=== PATIENT | male | born 1975 | race Caucasian/White ===

== ENCOUNTER → 2017-08-03 | Outpatient (CLI) | payer OTHER ==
[2017-08-03 18:32] LABS: BLOOD UREA NITROGEN 10 mg/dl (7-18); CALCIUM 9.6 mg/dl (8.5-10.1); CARBON DIOXIDE 29 mmol/L (21-32); CHLORIDE 102 mmol/L (98-107); CREATININE 1.01 mg/dl (0.60-1.40); GLUCOSE,FASTING 92 mg/dl (70-99); POTASSIUM 4.2 mmol/L (3.5-5.1); SODIUM 135 mmol/L (136-145)
[2017-08-03 18:46] LABS: CHOLESTEROL 205 mg/dl (0-200); CHOLESTEROL/HDL RATIO 5.3; HDL CHOLESTEROL 39 mg/dl; LDL CHOLESTEROL CALCULATED 97 mg/dl; TRIGLYCERIDES 345 mg/dl (0-150); VERY LOW DENSITY LIPOPROT CALC 69 mg/dl
== END | disposition home or self-care (01) ==
LOC: C.LABPBG 12:32
PROVIDERS: ATTEND Family Medicine
DX: Z00.00 Encounter for general adult medical examination without abnormal findings (principal); R45.851 Suicidal ideations; R53.83 Other fatigue; Z13.21 Encounter for screening for nutritional disorder

== ENCOUNTER → 2017-08-19 | Outpatient (CLI) | payer OTHER ==
--- NOTE | 2017-08-20 06:17 | PAP/PSG TECHNICIAN REPORT ---
[facility] Chart Writer Polysomnogram Report Study name: None Report date: 08/20/2017 Study date: 08/19/2017 Referring Physician: Haydee Garcia DO Name: TERI SOLOMON Interpreting Physician: Scott Taylor M.D. Date of : 1975 Chart Writer: Kay Vogel, PSGT. Sex: Male Age: 42 StudyType: PSG Weight: 195 lbs Height: 42 years, Height 5' 11" Neck Circum:16 inches BMI: 27.19 Medications: Klonopin 05 mg, Vit.-D 5000 iu, Magnesium 200 mg, Maxalt 10 mg, Multivit. Patient History 42 yr. old male presents to the sleep lab, for a baseline sleep study. Patient states that he has had c-pap in the past, 3 years ago while living in [place]. He stated that he was able to tolerate the pressure .He now suffers from Bipolar , depression as well as anxiety. He also states that he wakes with a headache daily. He wakes often and never feels rested even after 10-12 hours of sleep.ESS=7, Neck= 16 inches. Parameters Monitored NPSG: E1-M2, E2-M1, Fp1-M2, Fp2-M1, F3-M2, F4-M2, F4-M1, C3-M2, C4-M2, C4-M1, O1-M2, O2-M2, O2-M1, T3-M2, T4-M1, P3-M2, P4-M1, CHIN1, CHIN2, HR, EKG, Legs, PFLOW, SNOR, FLOW, CFLOW, Tidal Volume, THOR, ABDO, SpO2, PLTH, CPRESS, ETCO2 Wave, ETCO2, pH Sleep Architecture Sleep Stages Time at Lights Off 11:01:58 PM STAGES Time (min.) TST (%) Time at Lights On 5:32:28 AM Wake 91.0 -- Total Recording Time (TRT) 395.50 min. N1 23.5 8 Total Sleep Period (TSP) 356.0 min. N2 170.0 57 Total Sleep Time (TST) 299.5min. N3 28.0 9 Awake Time 91.0 min. REM 78.0 26 Wake after Sleep Onset 56.5 min. Sleep Efficiency (SE) 77 % Sleep Onset Latency (HAYDEE) 34.5 min. Number of Stage 1 Shifts None Awakenings 2 Stage Changes 14 Number of REM periods 2 REM 78.0 26 REM Latency 99.5 min. NREM 221.5 74 Body Position Analysis Supine Right Left Side Prone Vertical Total Sleep Time (min.) 380.4 0.0 0.0 0.00 0.0 10.1 Total Sleep Time (%) 100% 0% 0% 0 0% N/A% Total Sleep Time REM (min.) 78.0 0.0 0.0 None 0.0 0.0 Total Sleep Time NREM (min.) 221.5 0.0 0.0 None 0.0 0.0 Intermittent Wake (min.) 80.9 0.0 0.0 None 0.0 10.1 Total Sleep Period (%) 100% None None None None None Arousals Myoclonus (PLM) * Events Count Index Events Count Index Spontaneous 30 6 Events Awake (PLMW) 0 0.0 Respiratory 1 0.2 Events Asleep w/ Arousal (PLMA) 2 0.4 PLM 2 0 Events Asleep w/o Arousal (PLMS) 52 10.4 Snoring 10 2 Total Asleep 54 10.8 Total 43 9 Total 54 8 Respiratory Analysis * CA OA MA CH H RERA Total Count 0 2 0 0 59 0 61 Index 0.0 0.4 0.0 0 11.8 0 12.2 Mean Duration 0.0 23.5 0.0 0.00 19.1 0.0 19.2 Longest Duration 0.0 26.2 0.0 0.00 0.0 0.0 46.4 Respiratory Event Summary Total Supine ~Supine Right Left Prone REM NREM Apneas Count 2 2 N/A N/A N/A N/A 0 2 Index 0.4 0 N/A N/A N/A N/A 0 1 Hypopneas (4% Desat) Count 59 59 N/A N/A N/A N/A 28 31 Index 11.8 11.8 N/A N/A N/A N/A 21.5 8.4 Apneas & All Hypopneas Count 61 61 N/A N/A N/A N/A 28 33 Index 12.2 12 N/A N/A N/A N/A 21.5 8.9 Respiratory Events (Ceramic Maker Demonstrator+All Hyp+RERA) Count 61 61 N/A N/A N/A N/A 28 33 Index 12.2 12 N/A N/A N/A N/A 21.5 8.9 Respiratory Related Arousal Count 1 61 N/A N/A N/A N/A 1 0 Index 0.2 0 N/A N/A N/A N/A 1 0 Snoring Analysis Supine Right Left Prone REM NREM Total Snore duration 44.4 min Snores count 1,783 N/A N/A N/A 156 1,627 1,783 Snore mean duration 1.5 Sec Snores index 357 N/A N/A N/A 120.0 440.7 357.2 TST with snoring (%) 14.8% Desaturation Event Summary: Minimum %SpO2 Event Count Mean/Min/Max Duration(sec.) Desaturation Index % Time In Bed > 90 53 28.8 / 13.5 / 56.8 25.0 33.6 86 - 90 43 25.8 / 8.5 / 56.3 10.6 64.5 81 - 85 1 8.5 / 8.5 / 8.5 8.0 2.0 76 - 80 0 N/A 0.0 0.0 71 - 75 0 N/A 0.0 0.0 66 - 70 0 N/A 0.0 0.0 61 - 65 0 N/A 0.0 0.0 56 - 60 0 N/A 0.0 0.0 51 - 55 0 N/A 0.0 0.0 < 50 0 N/A 0.0 0.0 Total REM NREM Awake <50% 0.0 min. 0.0 min. 0.0 min. 0.0 min. 51 - 60% 0.0 min. 0.0 min. 0.0 min. 0.0 min. 61 - 70% 0.0 min. 0.0 min. 0.0 min. 0.0 min. 71 - 80% 0.0 min. 0.0 min. 0.0 min. 0.0 min. 81 - 90% 252.0 min. 44.4 min. 166.9 min. 40.7 min. 91 - 100% 127.3 min. 33.0 min. 53.4 min. 41.0 min. Average 90 90 89 90 Minimum SpO2 77 82 81 77 Desaturation Event Index 9.7 22.3 9.2 0.0 # Desat. Events below 89% 54 24 30 N/A Time(%) with Saturation below 89% 23.9 3.0 20.3 0.6 Time(min.) with Saturation below 89% 90.7 11.6 77.0 2.2 Time (mins) REM (mins) NREM (mins) % of TST SpO2 Below 90% 62 29 N33 46.7 SpO2 Below 88% 23 0 0 16 Heart Rate Analysis Min (bpm) Max (bpm) Average (bpm) Awake 64 127 73 NREM 56 95 69 REM 61 98 70 Overall 56 98 69 Supplemental O2 Values Minimum O2 level: None Value Start Time End Time Chart Writer Comments PSG Study Mr. Solomon slept in the supine positions. No cardiac arrhythmia or PLM's noted. No bruxism noted. Snoring was noted and scored as a 3 on a scale of 1 through 5. (0=no snoring, 5=snoring loud enough to be heard through a closed door or down the oro way) Mr. Solomon awoke to use the restroom one time during the night. stated, I did sleep as well as I do when I am in my own bed. The final report will be interpreted and signed by a sleep physician. The completed physician report will then be placed in the patient medical record. Therapy (cm H2O) 0 TIB (min.) 390.5 TST (min.) 299.5 Sleep Onset (min.) 34.5 REM Onset From Sleep (min.) 99.5 Sleep Efficiency % 77 Wakefulness (%) 23 Wakefulness (min.) 91.0 NREM 1 (%) 8 NREM 1 (min.) 23.5 NREM 2 (%) 57 NREM 2 (min.) 170.0 NREM 3 (%) 9 NREM 3 (min.) 28.0 REM (%) 26 REM (min.) 78.0 # Arousals 43 Arousal Index 9 # Snore 1,783 Snore Index 357.2 AHI 12.2 AHI Supine 12 AHI Non-Supine N/A NREM AHI 8.9 REM AHI 21.5 RDI 12.2 # Obstructive Apnea 2 # Central Apnea 0 # Mixed Apnea 0 # Hypopneas 59 RERAs 0 Total Respiratory Events 63 Time Below SpO2 89% (min.) 88.6 Mean NREM SpO2 (%) 89 Mean REM SpO2 (%) 90 Mean Sleep SpO2 (%) 89 Min NREM SpO2 (%) 81 Min REM SpO2 (%) 82 Position Supine (min.) 380.4 Position Non-supine (min.) 0.0 LM Index Sleep 10.8 LM Index NREM 7.0 LM Index REM 21.5 Mean Heart Rate (bpm) 69 Min Heart Rate (bpm) 56
--- NOTE | 2017-08-21 09:48 | POLYSOMNOGRAPH REPORT ---
CLINICAL DATA: A 42-year-old male with BMI of 27.[address] Haydee Garcia. He has a history of sleep apnea in the past and was on CPAP 3 years ago while living in [place], but was unable to tolerate CPAP. He now has depression, anxiety and fatigue with daily headaches. He awakens not feeling rested after 10-12 hours of sleep. His Coy sleepiness score is 7/24. SLEEP ARCHITECTURE: Total sleep period was 356 minutes. Total sleep time was 299.5 minutes divided between 221.5 minutes of non-REM sleep and 78 minutes of REM sleep. Sleep onset latency was 34.5 minutes. REM latency was 99.5 minutes. Sleep efficiency was 77%. Wake after sleep onset was 56.5 minutes. Sleep consisted of stage N1 8%, stage N2 57%, stage N3 9%, and REM 26%. AROUSAL DATA: 43 arousals were recorded for an index of 9 per hour. 30 were spontaneous. PLM DATA: 54 limb movements during sleep were noted for an index of 10.8 per hour with arousal index of 0.4 per hour. RESPIRATORY DATA: Mild sleep apnea was documented. The AHI was 12.2. There were 2 obstructive apneic episodes. The longest duration of apnea was 26.2 seconds. There were 59 hypopneic episodes with a mean duration of 19 seconds. OXIMETRY DATA: Nocturnal hypoxemia was seen. Oxygen eddie was 81% during non-REM sleep. The mean saturation was 90%. Time below 88% was 22 minutes. EKG: Heart rates ranged from 56-98 beats per minute. No arrhythmias were noted. CONVEYOR SYSTEM OPERATOR'S COMMENTS: The patient slept supine. Snoring was moderate, rated 3 on a scale of 1-5. IMPRESSION: Mild sleep apnea/hypopnea with an AHI of 12.2 with nocturnal hypoxemia. RECOMMENDATIONS: The patient may benefit from a repeat sleep study with CPAP, use of an oral appliance, or sleep medicine consultation. Clinical correlation is needed. [place]GLE
== END | disposition home or self-care (01) ==
LOC: C.NEUR 21:00
PROVIDERS: ATTEND Physician Assistant
DX: G47.30 Sleep apnea, unspecified (principal); G47.36 Sleep related hypoventilation in conditions classified elsewhere

== ENCOUNTER → 2017-09-22 | Outpatient (CLI) | payer OTHER ==
[~2017-09-22] VITALS: Ht 180.3 cm; Wt 89.9 kg
[2017-09-22 14:14] VITALS: BP 122/85; PULSE 91; Ht 180.3 cm; Wt 89.9 kg
== END | disposition home or self-care (01) ==
LOC: C.NEUR 13:12
PROVIDERS: ATTEND Internal Medicine Pulmonary Disease
DX: G47.30 Sleep apnea, unspecified (principal); R53.83 Other fatigue; F32.9 Major depressive disorder, single episode, unspecified; F31.9 Bipolar disorder, unspecified

== ENCOUNTER → 2017-10-04 | Outpatient (CLI) | payer OTHER ==
--- NOTE | 2017-10-05 06:36 | PAP/PSG TECHNICIAN REPORT ---
[facility] Director Of Resource Development Polysomnogram Report Study name: None Report date: 10/05/2017 Study date: 10/04/2017 Referring Physician: DR. TAYLOR Name: TERI SOLOMON Interpreting Physician: Scott Taylor M.D. Date of : 1975 Director Of Resource Development: PETE Correa. Sex: Male Age: 42 StudyType: PSG PAP Weight: 198 lbs 16.5 inches Height: 42 years, Height 5' 11" Neck Circum: BMI: 27.61 Medications: ADVIL, KLONOPIN 0.5 MG, MAGNESIUM 200 MG, RIZATRIPTAN BENZOATE 10 MG Patient History PATIENT HAD A SLEEP STUDY SEVERAL YEARS AGO AND HAD A SLIT STUDY DONE. HE WAS NOT ABLE TO TOLERATE CPAP AND HAD A PANIC ATTACK. HE RECENTLY HAD A NPSG AND WAS POSITIVE FOR [place] WITH AN AHI OF 12.2/HR. HE IS HERE TODAY FOR A CPAP TITRATION. RM 5 Parameters Monitored NPSG: E1-M2, E2-M1, Fp1-M2, Fp2-M1, F3-M2, F4-M2, F4-M1, C3-M2, C4-M2, C4-M1, O1-M2, O2-M2, O2-M1, T3-M2, T4-M1, P3-M2, P4-M1, CHIN1, CHIN2, HR, EKG, Legs, PFLOW, SNOR, FLOW, CFLOW, Tidal Volume, THOR, ABDO, SpO2, PLTH, CPRESS, ETCO2 Wave, ETCO2, pH Sleep Architecture Sleep Stages Time at Lights Off 11:02:23 PM STAGES Time (min.) TST (%) Time at Lights On 6:10:23 AM Wake 238.5 -- Total Recording Time (TRT) 428.50 min. N1 14.5 8 Total Sleep Period (TSP) 392.5 min. N2 74.0 39 Total Sleep Time (TST) 189.5min. N3 62.5 33 Awake Time 238.5 min. REM 38.5 20 Wake after Sleep Onset 203.0 min. Sleep Efficiency (SE) 44 % Sleep Onset Latency (HAYDEE) 35.5 min. Number of Stage 1 Shifts None Awakenings 10 Stage Changes 38 Number of REM periods 3 REM 38.5 20 REM Latency 351.5 min. NREM 151.0 80 Body Position Analysis Supine Right Left Side Prone Vertical Total Sleep Time (min.) 348.2 0.0 73.0 73.01 0.0 0.0 Total Sleep Time (%) 61% 0% 39% 39 0% N/A% Total Sleep Time REM (min.) 31.0 0.0 7.5 None 0.0 0.0 Total Sleep Time NREM (min.) 85.5 0.0 65.5 None 0.0 0.0 Intermittent Wake (min.) 231.7 0.0 6.8 None 0.0 0.0 Total Sleep Period (%) 80% None None None None None Arousals Myoclonus (PLM) * Events Count Index Events Count Index Spontaneous 13 4 Events Awake (PLMW) 139 35.0 Respiratory 1 0.6 Events Asleep w/ Arousal (PLMA) 1 0.3 PLM 0 0 Events Asleep w/o Arousal (PLMS) 25 7.9 Snoring 1 0 Total Asleep 26 8.2 Total 15 5 Total 165 23 Respiratory Analysis * CA OA MA CH H RERA Total Count 0 0 0 0 9 1 9 Index 0.0 0.0 0.0 0 2.8 0 3.2 Mean Duration 0.0 0.0 0.0 0.00 16.1 15.7 16.0 Longest Duration 0.0 0.0 0.0 0.00 0.0 15.7 18.7 Respiratory Event Summary Total Supine ~Supine Right Left Prone REM NREM Apneas Count 0 0 0 N/A 0 N/A 0 0 Index 0.0 0 0 N/A 0.0 N/A 0 0 Hypopneas (4% Desat) Count 9 8 1 N/A 1 N/A 1 8 Index 2.8 4.1 1 N/A 0.8 N/A 1.6 3.2 Apneas & All Hypopneas Count 9 8 1 N/A 1 N/A 1 8 Index 2.8 4 1 N/A 1 N/A 1.6 3.2 Respiratory Events (Cnc Cutting Operator+All Hyp+RERA) Count 9 9 1 N/A 1 N/A 1 8 Index 3.2 5 1 N/A 0.8 N/A 1.6 3.6 Respiratory Related Arousal Count 1 9 0 N/A 0 N/A 0 2 Index 0.6 1 0 N/A 0 N/A 0 1 Snoring Analysis Supine Right Left Prone REM NREM Total Snore duration 0.5 min Snores count 26 N/A 1 N/A 1 26 27 Snore mean duration 1.1 Sec Snores index 13 N/A 1 N/A 1.6 10.3 8.5 TST with snoring (%) 0.3% Desaturation Event Summary: Minimum %SpO2 Event Count Mean/Min/Max Duration(sec.) Desaturation Index % Time In Bed > 90 67 21.4 / 7.0 / 51.5 10.9 89.4 86 - 90 2 14.3 / 12.5 / 16.0 2.7 10.6 81 - 85 0 N/A 0.0 0.0 76 - 80 0 N/A 0.0 0.0 71 - 75 0 N/A 0.0 0.0 66 - 70 0 N/A 0.0 0.0 61 - 65 0 N/A 0.0 0.0 56 - 60 0 N/A 0.0 0.0 51 - 55 0 N/A 0.0 0.0 < 50 0 N/A 0.0 0.0 Total REM NREM Awake <50% 0.0 min. 0.0 min. 0.0 min. 0.0 min. 51 - 60% 0.0 min. 0.0 min. 0.0 min. 0.0 min. 61 - 70% 0.0 min. 0.0 min. 0.0 min. 0.0 min. 71 - 80% 0.0 min. 0.0 min. 0.0 min. 0.0 min. 81 - 90% 43.8 min. 0.0 min. 27.2 min. 16.6 min. 91 - 100% 368.9 min. 38.5 min. 123.8 min. 206.6 min. Average 92 94 92 93 Minimum SpO2 86 92 87 86 Desaturation Event Index 9.4 1.6 2.8 14.8 # Desat. Events below 89% 11 N/A 5 6 Time(%) with Saturation below 89% 0.4 0.0 0.3 0.2 Time(min.) with Saturation below 89% 1.8 0.0 1.1 0.7 Time (mins) REM (mins) NREM (mins) % of TST SpO2 Below 90% 7 N/A N7 2.6 SpO2 Below 88% 2 0 0 0 Heart Rate Analysis Min (bpm) Max (bpm) Average (bpm) Awake 55 91 71 NREM 54 80 62 REM 55 93 63 Overall 54 93 62 Supplemental O2 Values Minimum O2 level: None Value Start Time End Time Director Of Resource Development Comments Mr. Solomon slept in the left and supine positions. No cardiac arrhythmia noted. Leg movements noted. No bruxism noted. CPAP was initiated at +4 CMH2O and up-titrated to an optimal level of +8 CMH2O, which nearly eliminated all respiratory events and snoring. A [employer] and [employer] Pilairo nasal pillow was used during titration Mr. Solomon awoke to use the restroom 1 time during the night. Mr. Solomon stated I did not sleep as well as I do when I am in my own bed. The final report will be interpreted and signed by a sleep physician. The completed physician report will then be placed in the patient medical record. Therapy Event: Therapy (cm H20) 4 5 6 7 8 8/4 Total Time at Pressure (min.) 50.1 93.4 11.3 187.0 36.3 50.0 TST at Pressure (min.) 13.0 18.4 11.3 113.1 33.8 0.0 # Periods 1 2 1 2 1 1 Sleep Onset (min.) 35.5 52.9 0.0 0.0 0.0 N/A REM Onset (min.) N/A N/A N/A 55.1 0.0 N/A Sleep Efficiency % 25 19 100 60 93 0 Wakefulness (%) 74.1 80.3 0.0 39.5 6.9 100.0 Wakefulness (min.) 37.1 75.0 0.0 73.9 2.5 50.0 NREM 1 (%) 8.0 7.5 0.0 1.9 0.0 0.0 NREM 1 (min.) 4.0 7.0 0.0 3.5 0.0 0.0 NREM 2 (%) 18.0 12.2 100.0 22.6 0.0 0.0 NREM 2 (min.) 9.0 11.4 11.3 42.3 0.0 0.0 NREM 3 (%) 0.0 0.0 0.0 33.4 0.0 0.0 NREM 3 (min.) 0.0 0.0 0.0 62.5 0.0 0.0 REM (%) 0.0 0.0 0.0 2.5 93.1 0.0 REM (min.) 0.0 0.0 0.0 4.7 33.8 0.0 # Arousals 5 3 0 5 2 N/A Arousal Index 23.1 9.8 0.0 2.7 3.6 N/A # Snore 23 0 2 1 1 N/A Snore Index 106.2 0.0 10.7 0.5 1.8 N/A AHI 18.5 6.5 10.7 0.5 0.0 N/A AHI Supine 18.5 18.4 10.7 0.0 0.0 N/A AHI Non-Supine N/A 0.0 N/A 1.0 0.0 N/A NREM AHI 18.5 6.5 10.7 0.0 N/A N/A REM AHI N/A N/A N/A 12.6 0.0 N/A RDI 23.1 6.5 10.7 0.5 0.0 N/A # Obstructive 0 0 0 0 0 N/A # Central Ap 0 0 0 0 0 N/A # Mixed 0 0 0 0 0 N/A # Hypopneas 4 2 2 1 0 N/A RERAS 1 0 0 0 0 N/A Total Respiratory Events 5 2 2 1 0 N/A Time Below SpO2 89.00% (min.) 0.2 0.2 0.5 0.2 0.0 0.0 Mean NREM SpO2 (%) 92 92 90 92 N/A N/A Mean REM SpO2 (%) N/A N/A N/A 94 94 N/A Mean Sleep SpO2 (%) 92 92 90 92 94 N/A Min NREM SpO2 (%) 88 87 88 88 N/A N/A Min REM SpO2 (%) N/A N/A N/A 92 92 N/A Position Supine (min.) 13.0 6.5 11.3 54.7 31.0 0.0 Position Non-supine (min.) 0.0 11.9 0.0 58.3 2.8 0.0 LM Index Sleep 9.2 3.3 5.3 2.7 30.2 N/A LM Index NREM 9.2 3.3 5.3 0.6 N/A N/A LM Index REM N/A N/A N/A 50.5 30.2 N/A Mean Heart Rate (bpm) 68 62 63 61 63 N/A Min Heart Rate (bpm) 65 57 59 54 55 N/A
--- NOTE | 2017-10-05 17:14 | POLYSOMNOGRAPH REPORT ---
CLINICAL DATA: A 42-year-old male with a BMI of 27.61, referred for a CPAP titration study. He had a sleep study which showed mild sleep apnea with an AHI of 12.2. He previously tried CPAP in another lab, but he panicked and could not tolerate it. SLEEP ARCHITECTURE: Total sleep period was 392.5 minutes. Total sleep time was 189.5 minutes divided between 151 minutes of non-REM sleep and 38.5 minutes of REM sleep. Sleep onset latency was delayed at 35.5 minutes. REM latency was delayed at 351.5 minutes. Sleep efficiency was reduced at 44%. Wake after sleep onset was 203 minutes. Sleep consisted of stage N1 8%, stage N2 39%, stage N3 33%, and REM 20%. AROUSAL DATA: Fifteen arousals recorded for an index of 5 per hour. PERIODIC LIMB MOVEMENT DATA: Twenty six limb movements during sleep were noted for an index of 8.2 per hour with arousal index of 0.3 per hour. RESPIRATORY DATA: The AHI was 2.8. There were 9 hypopneic episodes with mean duration of 16.1 seconds. OXIMETRY DATA: No significant hypoxemia was seen. Oxygen eddie was 87% during non-REM sleep. The mean saturation was 92%. Time below 88% was 2 minutes. ECHOCARDIOGRAM: Heart rates ranged from 54-93 beats per minute. No arrhythmias were noted. ADVENTURE GUIDE'S COMMENTS AND TREATMENT SUMMARY: The patient slept in the left and supine positions. A Multani and [employer] P[employer] nasal pillow was used. The patient had difficult time using CPAP because of anxiety. He was awake for much of the night. However, he did eventually sleep at the end of the night and was able to be controlled with CPAP 8 cm of water pressure. At that pressure, he slept for 33.8 minutes with an AHI of 0. At 7 cm of water pressure, he slept for 113 minutes with an AHI of 0.5. IMPRESSION: Mild sleep apnea/hypopnea corrected with CPAP 7-8 cm of water pressure using a Multani and [employer]kel Pilairo nasal pillow. RECOMMENDATIONS: The patient should be seen back in followup to discuss beginning treatment with CPAP at the above noted pressure settings. [facility]
== END | disposition home or self-care (01) ==
LOC: C.NEUR 21:00
PROVIDERS: ATTEND Internal Medicine Pulmonary Disease
DX: F31.9 Bipolar disorder, unspecified (principal); F32.9 Major depressive disorder, single episode, unspecified; R53.83 Other fatigue; G47.30 Sleep apnea, unspecified